=== PATIENT | female | born 1990 | race Caucasian/White ===

== ENCOUNTER 2017-10-12 03:30 | Emergency (ER) | payer MEDICAID ==
[~2017-10-12] VITALS: Ht 160 cm; Wt 72.6 kg
[2017-10-12] MEDS ORDERED: AMPH30CA3 PO (03:57)
[2017-10-12] MEDS ORDERED: GABA100C PO (03:57)
--- NOTE | 2017-10-12 04:08 | NUR ---
DR. MADRID AT BEDSIDE FOR MSE.
[2017-10-12] MEDS ORDERED: IV NORMAL SALINE 1000 ML BAG IV ONE (04:15)
[2017-10-12] MEDS ORDERED: HYDROMORPHONE 1 MG/1 ML DISP.SYRIN IV ONE (04:15)
[2017-10-12] MEDS ORDERED: ONDANSETRON 4 MG/2 ML VIAL IV ONE (04:15)
--- NOTE | 2017-10-12 04:22 | NUR ---
PATIENT IS REFUSING TO HAVE IV LINE INSERTED AT THIS TIME. WANTS TO TRY IN A FEW MINUTES. PATIENT STATES THAT SHE IS AFRAID OF NEEDLES.
[2017-10-12] MEDS ORDERED: OXYCODONE/APAP 5-325 MG TABLET PO ONE ×2 (04:30→05:45)
[2017-10-12] MEDS ORDERED: ONDANSETRON ODT 4 MG TAB.RAPDIS SL ONE (04:30)
[2017-10-12] MEDS ORDERED: ONDANSETRON ODT 4 MG TAB.RAPDIS ONE (04:51)
[2017-10-12] MEDS ORDERED: OXYCODONE/APAP 5-325 MG TABLET ONE ×2 (04:51→06:27)
[2017-10-12 05:38] LABS: *URINE HCG, QUAL NEGATIVE (NEGATIVE)
[2017-10-12] MEDS ORDERED: IBUPROFEN 600 MG TABLET PO ONE (05:45)
[2017-10-12] MEDS ORDERED: IBUPROFEN 600 MG TABLET ONE (06:26)
[2017-10-12 06:37] VITALS: BP 111/81
--- NOTE | 2017-10-12 06:37 | NUR ---
Patient discharged to home in stable conditon. Written and verbal after care instructions given. Patient verbalizes understanding of instructions. PATIENT LEFT WITH STABLE GAIT.
== END 2017-10-12 06:39 | disposition home or self-care (01) ==
LOC: ER 03:32
DX: G89.29 Other chronic pain (principal); D25.9 Leiomyoma of uterus, unspecified; R51 Headache; M41.9 Scoliosis, unspecified; N91.2 Amenorrhea, unspecified; R42 Dizziness and giddiness; R10.2 Pelvic and perineal pain; F17.200 Nicotine dependence, unspecified, uncomplicated
CPT/HCPCS: 70450; 84703; 99285; A4663; J7030; Q0162